=== PATIENT | male | born 1950 | race Caucasian/White ===

== ENCOUNTER 2017-01-27 04:00 | Emergency (ER) | payer OTHER ==
[2017-01-27 05:09] LABS: BASOPHIL % 0.4 % (0-2)
[2017-01-27 05:10] LABS: PLATELET COUNT 86 x10^3mcL (130-400)
[2017-01-27 05:22] LABS: ALBUMIN 3.5 g/dL (3.4-5.0); ALKALINE PHOSPHATASE 63 U/L (46-116); ALT/SGPT 22 U/L (16-63); AST/SGOT 30 U/L (15-37); BILIRUBIN TOTAL 0.6 mg/dL (0.20-1.00); CALCIUM 8.5 mg/dL (8.5-10.1); CARBON DIOXIDE 26.8 mmol/L (21-32); CHLORIDE SERUM 101 mmol/L (98-107); GFR1 > 60 mL/min; GLUCOSE SERUM 132 mg/dL (74-106); LIPASE 145 IU/L (73-393); POTASSIUM SERUM 3.8 mmol/L (3.5-5.1); SODIUM SERUM 136 mmol/L (136-145); TOTAL PROTEIN, SERUM 6.6 g/dL (6.4-8.2)
[2017-01-27 06:12] VITALS: BP 138/70
== END 2017-01-27 06:12 | disposition home or self-care (01) ==
LOC: ED 04:00
PROVIDERS: Emergency Medicine
DX: R10.13 Epigastric pain (principal)
CPT/HCPCS: Q0162

== ENCOUNTER 2017-05-25 22:29 | Emergency (ER) | payer OTHER ==
[2017-05-26 00:16] LABS: BASOPHIL % 0.6 % (0-2); RED CELL DISTRIBUTION WIDTH 14.3 % (11.5-14.5)
[2017-05-26 00:20] LABS: UA SPECIFIC GRAVITY <=1.005 (1.005-1.035); microscopic required? YES; urine erythrocyte 3+ (NEGATIVE)
[2017-05-26 00:21] LABS: PLATELET COUNT 94 x10^3mcL (130-400)
[2017-05-26 00:35] LABS: CARBON DIOXIDE 24.4 mmol/L (21-32); CHLORIDE SERUM 100 mmol/L (98-107); CREATININE SERUM 1.1 mg/dL (0.7-1.3); GFR1 > 60 mL/min; GLUCOSE SERUM 105 mg/dL (74-106); POTASSIUM SERUM 3.8 mmol/L (3.5-5.1); SODIUM SERUM 133 mmol/L (136-145)
[2017-05-26 02:45] VITALS: BP 135/78
[2017-05-26] MEDS ORDERED: KEFLEX500 M1 (11:27)
[2017-05-26] MEDS ORDERED: FLOMAX0.4 MG (11:28)
== END 2017-05-26 02:45 | disposition home or self-care (01) ==
LOC: ED 22:29
PROVIDERS: Emergency Medicine
DX: N39.0 Urinary tract infection, site not specified (principal); N40.0 Benign prostatic hyperplasia without lower urinary tract symptoms; Z79.899 Other long term (current) drug therapy
CPT/HCPCS: 36415; J0696; J1885

== ENCOUNTER 2017-05-26 07:45 | Inpatient (IN) | payer OTHER ==
[~2017-05-26] VITALS: Ht 167.6 cm; Wt 75.0 kg
[2017-05-26 09:00] LABS: BASOPHIL % 0.3 % (0-2)
[2017-05-26 09:06] LABS: PLATELET COUNT 95 x10^3mcL (130-400)
[2017-05-26 09:31] LABS: CALCIUM 7.8 mg/dL (8.5-10.1); CARBON DIOXIDE 22.6 mmol/L (21-32); CHLORIDE SERUM 100 mmol/L (98-107); GFR1 > 60 mL/min; GLUCOSE SERUM 109 mg/dL (74-106); POTASSIUM SERUM 4.1 mmol/L (3.5-5.1); SODIUM SERUM 131 mmol/L (136-145)
[2017-05-26 09:38] LABS: ALBUMIN 3.4 g/dL (3.4-5.0); ALKALINE PHOSPHATASE 61 U/L (46-116); ALT/SGPT 22 U/L (16-63); AST/SGOT 22 U/L (15-37); BILIRUBIN TOTAL 0.68 mg/dL (0.20-1.00); CHOLESTEROL 154 mg/dL (<200); HDL CHOLESTEROL 49 mg/dL (40-60); TOTAL PROTEIN, SERUM 6.7 g/dL (6.4-8.2)
[2017-05-26 09:57] LABS: microscopic required? YES; urine erythrocyte 3+ (NEGATIVE)
[2017-05-26] MEDS ORDERED: KEFLEX500 M1 (11:27)
[2017-05-26] MEDS ORDERED: FLOMAX0.4 MG (11:28)
[2017-05-26 12:12] LABS: CHOLESTEROL/HDL RATIO 3.1; MAGNESIUM 2.1 mg/dL (1.8-2.4); PHOSPHOROUS 2.7 mg/dL (2.5-4.9)
[2017-05-26 12:13] LABS: T3 TOTAL 1.07 ng/mL
[2017-05-26 12:18] LABS: FREE T4 1.24 ng/dL (0.76-1.46); T4(THYROXINE) 8.9 ug/dL (4.7-13.3)
[2017-05-26 14:45] VITALS: BP 154/82
[2017-05-26 17:59] VITALS: BP 150/80
[2017-05-26 19:21] LABS: BASOPHIL % 0.3 % (0-2); PLATELET COUNT 97 x10^3mcL (130-400); RED CELL DISTRIBUTION WIDTH 14.1 % (11.5-14.5)
[2017-05-26 22:08] VITALS: BP 127/65
[2017-05-27 06:23] VITALS: BP 148/88
[2017-05-27 06:28] LABS: CALCIUM 7.6 mg/dL (8.5-10.1); CARBON DIOXIDE 22.9 mmol/L (21-32); CHLORIDE SERUM 112 mmol/L (98-107); GFR1 > 60 mL/min; GLUCOSE SERUM 96 mg/dL (74-106); MAGNESIUM 2.2 mg/dL (1.8-2.4); PHOSPHOROUS 2.7 mg/dL (2.5-4.9); POTASSIUM SERUM 4.2 mmol/L (3.5-5.1); SODIUM SERUM 144 mmol/L (136-145)
[2017-05-27 06:40] LABS: BASOPHIL % 0.4 % (0-2); RED CELL DISTRIBUTION WIDTH 14.6 % (11.5-14.5)
[2017-05-27 06:41] LABS: PLATELET COUNT 90 x10^3mcL (130-400)
[2017-05-27 09:06] VITALS: BP 153/76
[2017-05-27 13:49] VITALS: BP 155/86
[2017-05-27 17:23] VITALS: BP 169/91
[2017-05-27 22:07] VITALS: BP 159/84
[2017-05-28 06:31] VITALS: BP 144/82
[2017-05-28 06:41] LABS: BASOPHIL % 0.4 % (0-2); RED CELL DISTRIBUTION WIDTH 14.3 % (11.5-14.5)
[2017-05-28 07:04] LABS: PLATELET COUNT 88 x10^3mcL (130-400)
[2017-05-28 07:08] LABS: CALCIUM 7.6 mg/dL (8.5-10.1); CARBON DIOXIDE 20.8 mmol/L (21-32); CHLORIDE SERUM 108 mmol/L (98-107); CREATININE SERUM 0.9 mg/dL (0.7-1.3); GFR1 > 60 mL/min; GLUCOSE SERUM 120 mg/dL (74-106); MAGNESIUM 1.8 mg/dL (1.8-2.4); PHOSPHOROUS 2.8 mg/dL (2.5-4.9); SODIUM SERUM 139 mmol/L (136-145)
[2017-05-28 08:00] VITALS: BP 141/90
[2017-05-28 17:46] VITALS: BP 134/71
[2017-05-28 20:32] LABS: RED CELL DISTRIBUTION WIDTH 14.3 % (11.5-14.5)
[2017-05-28 20:36] LABS: PLATELET COUNT 79 x10^3mcL (130-400)
[2017-05-28 20:47] VITALS: BP 130/68
[2017-05-28 20:51] LABS: BAND NEUTROPHIL 4 % (0-10); BASOPHIL 0 % (0-2); MONOCYTE 3 % (0-7); SEGMENTED NEUTROPHILS 70 % (37-75)
[2017-05-28 20:52] LABS: PLATELET MORPHOLOGY PLATELETS DECREASED; rbc morphology (normal/abnorm) NORMAL (NORMAL)
[2017-05-28 21:00] VITALS: BP 130/68
[2017-05-29] VITALS (11 sets, daily range): BP systolic 81–138; BP diastolic 47–69
[2017-05-29 07:28] LABS: CALCIUM 7.5 mg/dL (8.5-10.1); CHLORIDE SERUM 107 mmol/L (98-107); GFR1 > 60 mL/min; GLUCOSE SERUM 107 mg/dL (74-106); MAGNESIUM 1.7 mg/dL (1.8-2.4); PHOSPHOROUS 2.7 mg/dL (2.5-4.9); POTASSIUM SERUM 3.5 mmol/L (3.5-5.1); SODIUM SERUM 138 mmol/L (136-145)
[2017-05-29 07:29] LABS: BASOPHIL % 0.1 % (0-2); RED CELL DISTRIBUTION WIDTH 14.1 % (11.5-14.5)
[2017-05-29 07:30] LABS: PLATELET COUNT 71 x10^3mcL (130-400)
[2017-05-29 11:07] LABS: BASOPHIL % 0.1 % (0-2)
[2017-05-29 11:14] LABS: CARBON DIOXIDE 21.6 mmol/L (21-32); CHLORIDE SERUM 107 mmol/L (98-107); CREATININE SERUM 1.1 mg/dL (0.7-1.3); GFR1 > 60 mL/min; GLUCOSE SERUM 159 mg/dL (74-106); PLATELET COUNT 73 x10^3mcL (130-400); POTASSIUM SERUM 3.6 mmol/L (3.5-5.1); RED CELL DISTRIBUTION WIDTH 14.6 % (11.5-14.5); SODIUM SERUM 138 mmol/L (136-145)
[2017-05-30 05:22] VITALS: BP 135/71
[2017-05-30 06:57] LABS: BASOPHIL % 0.3 % (0-2); PLATELET COUNT 77 x10^3mcL (130-400); RED CELL DISTRIBUTION WIDTH 14.7 % (11.5-14.5)
[2017-05-30 07:10] LABS: CALCIUM 7.3 mg/dL (8.5-10.1); CARBON DIOXIDE 22.7 mmol/L (21-32); CHLORIDE SERUM 108 mmol/L (98-107); GFR1 > 60 mL/min; GLUCOSE SERUM 120 mg/dL (74-106); MAGNESIUM 1.8 mg/dL (1.8-2.4); PHOSPHOROUS 1.8 mg/dL (2.5-4.9); POTASSIUM SERUM 3.5 mmol/L (3.5-5.1); SODIUM SERUM 137 mmol/L (136-145)
[2017-05-30 08:53] VITALS: BP 114/59
[2017-05-30 13:40] VITALS: BP 140/64
[2017-05-30 17:40] VITALS: BP 158/76
[2017-05-30 20:50] VITALS: BP 116/57
[2017-05-31 06:06] VITALS: BP 150/75
[2017-05-31 06:15] LABS: BASOPHIL % 0.2 % (0-2)
[2017-05-31 06:20] LABS: CARBON DIOXIDE 21.5 mmol/L (21-32); CHLORIDE SERUM 109 mmol/L (98-107); CREATININE SERUM 0.9 mg/dL (0.7-1.3); GFR1 > 60 mL/min; GLUCOSE SERUM 124 mg/dL (74-106); PHOSPHOROUS 1.8 mg/dL (2.5-4.9); POTASSIUM SERUM 3.5 mmol/L (3.5-5.1); SODIUM SERUM 140 mmol/L (136-145)
[2017-05-31 06:22] LABS: PLATELET COUNT 79 x10^3mcL (130-400); RED CELL DISTRIBUTION WIDTH 14.9 % (11.5-14.5)
[2017-05-31 10:12] VITALS: BP 137/65
[2017-05-31 14:34] VITALS: BP 127/67
[2017-05-31 17:33] VITALS: BP 119/61
[2017-05-31 21:27] VITALS: BP 110/60
[2017-06-01 05:55] VITALS: BP 144/76
[2017-06-01 06:36] LABS: BASOPHIL % 0.3 % (0-2)
[2017-06-01 06:52] LABS: CALCIUM 7.5 mg/dL (8.5-10.1); CARBON DIOXIDE 24.2 mmol/L (21-32); CHLORIDE SERUM 107 mmol/L (98-107); GFR1 > 60 mL/min; GLUCOSE SERUM 116 mg/dL (74-106); MAGNESIUM 2.1 mg/dL (1.8-2.4); PHOSPHOROUS 2.1 mg/dL (2.5-4.9); SODIUM SERUM 138 mmol/L (136-145)
[2017-06-01 06:54] LABS: PLATELET COUNT 91 x10^3mcL (130-400); RED CELL DISTRIBUTION WIDTH 16.7 % (11.5-14.5)
[2017-06-01 09:38] VITALS: BP 132/60
[2017-06-01 13:50] VITALS: BP 118/60
[2017-06-01 17:15] VITALS: BP 127/71
[2017-06-01] MEDS ORDERED: BACTRIM DS1 TAB PO (17:58)
[2017-06-01] MEDS ORDERED: BD LACTINEX1.4 MG PO (17:59)
[2017-06-01] MEDS ORDERED: PROS5 PO (17:59)
[2017-06-01] MEDS ORDERED: FLO4 PO (18:00)
[2017-06-01 18:05] VITALS: BP 127/71
== END 2017-06-01 19:40 | disposition home or self-care (01) | DRG 698 ==
LOC: ED 07:45 → DU 10:32
PROVIDERS: Emergency Medicine; Family Medicine; ADMIT Family Medicine
PROC: 0HQ1XZZ Repair Face Skin, External Approach (ICD-10-PCS; principal; 2017-05-28)
PROC: 30233N1 Transfusion of Nonautologous Red Blood Cells into Peripheral Vein, Percutaneous Approach (ICD-10-PCS; 2017-05-31)
DX: T83.098A Other mechanical complication of other urinary catheter, initial encounter (principal); N17.0 Acute kidney failure with tubular necrosis; N39.0 Urinary tract infection, site not specified; N40.1 Benign prostatic hyperplasia with lower urinary tract symptoms; R33.8 Other retention of urine; S01.81XA Laceration without foreign body of other part of head, initial encounter; R31.0 Gross hematuria; D50.0 Iron deficiency anemia secondary to blood loss (chronic); E11.9 Type 2 diabetes mellitus without complications; E02 Subclinical iodine-deficiency hypothyroidism; Z68.26 Body mass index [BMI] 26.0-26.9, adult; K80.20 Calculus of gallbladder without cholecystitis without obstruction; M47.896 Other spondylosis, lumbar region; K57.30 Diverticulosis of large intestine without perforation or abscess without bleeding; W18.39XA Other fall on same level, initial encounter; Y92.231 Patient bathroom in hospital as the place of occurrence of the external cause
CPT/HCPCS: 83880; 84439; 97110-GP; 97116-GP; 97530-GP; J0696; J1885; J1956; J2001; J2270; J2405; J2916; J3010; J3490; J7030; J7050; P9016; Q0092; Q0163; Q9967

== ENCOUNTER 2017-06-04 08:36 | Emergency (ER) | payer OTHER ==
[~2017-06-04 08:36] MED LIST: BACTRIM DS1 TAB PO; BD LACTINEX1.4 MG PO; FLO4 PO; FLOMAX0.4 MG; KEFLEX500 M1; PROS5 PO
[2017-06-04 08:44] VITALS: BP 146/75
== END 2017-06-04 09:04 | disposition home or self-care (01) ==
LOC: ED 08:36
DX: S01.81XD Laceration without foreign body of other part of head, subsequent encounter (principal); R03.0 Elevated blood-pressure reading, without diagnosis of hypertension; H52.7 Unspecified disorder of refraction; W17.89XD Other fall from one level to another, subsequent encounter; Y92.89 Other specified places as the place of occurrence of the external cause; Y99.8 Other external cause status